=== PATIENT | male | born 1970 | race Asian ===

== ENCOUNTER 2017-10-19 08:53 | Outpatient (CLI) | payer OTHER ==
[2017-10-19 16:32] LABS: A1C % 7.5 % (4.0-6.0)
== END 2017-10-19 09:10 | disposition home or self-care (01) ==
LOC: EEVIPCON 08:53 → LAB 08:53
DX: E11.9 Type 2 diabetes mellitus without complications (principal)
CPT/HCPCS: 36415-UA; 83036-90

== ENCOUNTER → 2018-03-30 | Outpatient (CLI) | payer OTHER ==
[2018-03-30 08:11] LABS: % BASOPHILS 1.1 % (0.0-2.0); % LYMPHOCYTES 27.8 % (20.0-50.0); % MONOCYTES 9.3 % (2.0-10.0); % NEUTROPHILS 59.8 % (40.0-80.0); BASOPHILE ABSOLUTE 0.1 Th/cumm (0-0.2); EOSINOPHILE ABSOLUTE 0.1 Th/cmm (0.1-0.4); HEMOGLOBIN 15.4 gm/dL (12-16); LYMPHOCYTE ABSOLUTE 1.9 Th/cmm (1.5-3.0); MEAN CELL VOLUME 91.2 fl (80-99); MEAN CORPUSCULAR HEMOGLOBIN 30.6 pg (26.0-30.0); MEAN CORPUSCULAR HGB CONC 33.6 pg (28.0-36.0); MEAN PLATELET VOLUME 7.2 fl; MONOCYTE ABSOLUTE 0.7 Th/cmm (0.3-1.0); NEUTROPHILE ABSOLUTE 4.2 Th/cmm (1.8-8.0); PLATELET COUNT 342 Th/cmm (150-400); RED BLOOD COUNT 5.05 Mil/cmm (4.30-5.70); RED CELL DISTRIBUTION WIDTH 12.9 % (11.5-20.0)
[2018-03-30 08:32] LABS: ALB/GLOB RATIO 1.3 (1.0-1.8); ALBUMIN 3.8 gm/dL (4.2-5.5); ALKALINE PHOSPHATASE 53 U/L (34-104); BILIRUBIN,TOTAL 0.5 mg/dL (0.3-1.0); BUN - UREA NITROGEN 14 mg/dL (7-25); CALCIUM SERUM 9.4 mg/dL (8.6-10.3); CARBON DIOXIDE 28.9 mEq/L (21.0-31.0); CHLORIDE 103 mEq/L (98-107); CHOLESTEROL 113 mg/dL (<200); CREATININE - SERUM 0.9 mg/dL (0.7-1.3); GFR AFRICAN-AMERICAN > 60.0 ml/min (>90); GFR NON AFRICAN-AMERICAN > 60.0 ml/min; GLUCOSE 150 mg/dL (70-105); HDL -HIGH DENSITY LIPOPROTEIN 38 mg/dL (23-92); POTASSIUM SERUM 3.9 mEq/L (3.5-5.1); SGOT 25 U/L (13-39); SGPT/ALT 35 U/L (7-52); SODIUM SERUM 138 mEq/L (136-145); TOTAL PROTEIN,SERUM 6.7 gm/dL (6.0-8.3); TRIGLYCERIDES 62 mg/dL (<150)
== END ==
LOC: LAB 07:21
DX: Z00.01 Encounter for general adult medical examination with abnormal findings (principal); Z12.11 Encounter for screening for malignant neoplasm of colon; E78.5 Hyperlipidemia, unspecified; N40.0 Benign prostatic hyperplasia without lower urinary tract symptoms; E11.9 Type 2 diabetes mellitus without complications; R53.83 Other fatigue; E55.9 Vitamin D deficiency, unspecified
CPT/HCPCS: 36415-UA; 80053-TC; 80061-TC; 82270-TC; 82306-90; 83036-90; 84153-90; 84439-90; 84443-TC; 85025-TC

== ENCOUNTER 2018-12-27 11:25 | Outpatient (CLI) | payer OTHER | END 2018-12-27 11:50 | disposition home or self-care (01) | LOC: LAB 11:25 | DX: E11.9 Type 2 diabetes mellitus without complications (principal) | CPT/HCPCS: 83036-90 ==